=== PATIENT | female | born 1935 | race Caucasian/White ===

== ENCOUNTER 2018-08-06 15:06 | Inpatient (IN) | payer MEDICARE, OTHER ==
[~2018-08-06] VITALS: Ht 165.1 cm; Wt 72.0 kg
[2018-08-06] MEDS ORDERED: SODIUM CHLORIDE FLUSH 10ML SYR IVF ONE (15:30)
[2018-08-06] MEDS: PLEASE ENTER HEIGHT AND WEIGHT MC SCH ×4 (15:30→21:16)
[2018-08-06] MEDS: PLEASE ENTER ALLERGIES MC SCH ×2 (15:30→21:16)
[2018-08-06 15:50] LABS: BASOPHILS # (AUTO) 0.03 x10^3/uL (0-0.1); BASOPHILS % (AUTO) 1 % (0-1); EOSINOPHILS # (AUTO) 0.05 x10^3/uL (0-0.4); EOSINOPHILS % (AUTO) 1 % (1-7); LYMPHOCYTES # (AUTO) 2.03 x10^3/uL (1-3.4); LYMPHOCYTES % (AUTO) 37 % (22-44); MD NO; MEAN CORPUSCULAR HEMOGLOBIN 32.4 pg (27.0-34.8); MEAN CORPUSCULAR HGB CONC 33.6 g/dL (32.4-35.8); MEAN CORPUSCULAR VOLUME 96.4 fL (80-100); MEAN PLATELET VOLUME 7.6 fL (7.4-10.4); MONOCYTES # (AUTO) 0.47 x10^3/uL (0.2-0.8); MONOCYTES % (AUTO) 9 % (2-9); NEUTROPHILS # (AUTO) 2.91 x10^3/uL (1.8-6.8); NEUTROPHILS % (AUTO) 53 % (42-75); PLATELET COUNT 182 x10^3/uL (130-400); RED CELL DISTRIBUTION WIDTH 14.7 % (9.6-15.2)
[2018-08-06 15:57] LABS: ALBUMIN 3.5 g/dL (3.4-5.0); ANION GAP 7 mmol/L (5-15); CALCIUM 9.1 mg/dL (8.5-10.1); CHLORIDE 110 mmol/L (98-107); CREATININE 1.16 mg/dL (0.55-1.02); INTERNATIONAL NORMALIZED RATIO 1.02 (0.93-1.1); PROTHROMBIN TIME 10.6 Seconds (9.6-11.5)
[2018-08-06] MEDS ORDERED: MELO7.5T31 PO (15:58)
[2018-08-06] MEDS ORDERED: HYDR200T72 PO (15:58)
[2018-08-06] MEDS ORDERED: DONE10TA14 PO (15:58)
[2018-08-06] MEDS ORDERED: ESCI10TA PO (15:58)
[2018-08-06] MEDS ORDERED: MINO100C PO (15:58)
[2018-08-06 16:01] LABS: TROPONIN I 0.051 ng/mL (0.000-0.045)
[2018-08-06 16:16] LABS: MICROSCOPIC NOT IND
[2018-08-06 16:18] LABS: CULTURE INDICATED? NO
[2018-08-06] MEDS ORDERED: ONDANSETRON 2MG/ML, 2ML IVPush PRN (17:00)
[2018-08-06] MEDS ORDERED: GABAPENTIN 300 MG CAPSULE PO PRN (17:00)
[2018-08-06] MEDS ORDERED: NITROGLYCERIN 0.4 MG/SPRAY SL PRN (17:00)
[2018-08-06] MEDS ORDERED: ONDANSETRON ODT 4 MG PO PRN (17:00)
[2018-08-06] MEDS ORDERED: MORPHINE SULFATE 4 MG/ML, 1ML IVPush PRN (17:00)
[2018-08-06] MEDS ORDERED: NITROGLYCERIN 0.4 MG BOTTLE (25 TABS) SL PRN (17:00)
[2018-08-06] MEDS ORDERED: ACETAMINOPHEN 325 MG TABLET PO PRN (17:00)
[2018-08-06] MEDS ORDERED: LIDODERM 5% PATCH TD PRN (17:00)
[2018-08-06] MEDS ORDERED: hydrALAzine 20 MG/ML, 1ML IVPush PRN (17:00)
[2018-08-06] MEDS ORDERED: SODIUM CHLORIDE FLUSH 10ML SYR IVF PRN (17:30)
[2018-08-06] MEDS ORDERED: FOLI-17 PO (18:25)
[2018-08-06 19:28] LABS: THYROID STIMULATING HORMONE 1.37 mIU/L (0.358-3.740)
[2018-08-06 20:23] VITALS: BP 185/87
[2018-08-06] MEDS: SODIUM CHLORIDE 0.9% 1,000 ML IV SCH (21:05)
[2018-08-06] MEDS: ATORVASTATIN 40 MG TABLET PO SCH (21:14)
[2018-08-06] MEDS: HEPARIN 5,000 UNITS/ML, 1ML SQ SCH (21:14)
[2018-08-06] MEDS: DONEPEZIL 10 MG TABLET PO SCH (21:14)
[2018-08-06 22:04] LABS: TROPONIN I 0.038 ng/mL (0.000-0.045)
[2018-08-07 01:26] VITALS: BP 145/77
[2018-08-07] MEDS ORDERED: ASPIRIN 325 MG TABLET ONE (03:42)
[2018-08-07] MEDS: ASPIRIN 325 MG TABLET PO SCH (03:49)
[2018-08-07] MEDS: HEPARIN 5,000 UNITS/ML, 1ML SQ SCH ×3 (03:50→21:06)
[2018-08-07 03:56] LABS: ALANINE AMINOTRANSFERASE 29 U/L (12-78); ALBUMIN 3.2 g/dL (3.4-5.0); ANION GAP 9 mmol/L (5-15); CALCIUM 8.5 mg/dL (8.5-10.1); CHLORIDE 112 mmol/L (98-107); CHOLESTEROL, TOTAL 198 mg/dL (140-239); CREATININE 0.88 mg/dL (0.55-1.02); TRIGLYCERIDES 131 mg/dL (50-200); VLDL CHOLESTEROL 26 mg/dL (0-25)
[2018-08-07 04:00] LABS: ALKALINE PHOSPHATASE 65 U/L (45-117); BILIRUBIN,TOTAL 0.9 mg/dL (0.2-1.0); CHOL/HDL RATIO 2.7; HDL CHOL % 37 % (28-40); HDL CHOLESTEROL (DIRECT) 74 mg/dL (40-60); LDL CHOLESTEROL,CALCULATED 98 mg/dL (54-169); LDL/HDL RATIO 1.3 (0.5-3.0); TOTAL PROTEIN 6.5 g/dL (6.4-8.2); TROPONIN I 0.054 ng/mL (0.000-0.045)
[2018-08-07 04:05] LABS: BASOPHILS # (AUTO) 0.03 x10^3/uL (0-0.1); BASOPHILS % (AUTO) 1 % (0-1); EOSINOPHILS # (AUTO) 0.07 x10^3/uL (0-0.4); EOSINOPHILS % (AUTO) 1 % (1-7); LYMPHOCYTES # (AUTO) 2.64 x10^3/uL (1-3.4); LYMPHOCYTES % (AUTO) 48 % (22-44); MD NO; MEAN CORPUSCULAR HEMOGLOBIN 32.1 pg (27.0-34.8); MEAN CORPUSCULAR HGB CONC 34.2 g/dL (32.4-35.8); MEAN CORPUSCULAR VOLUME 93.8 fL (80-100); MEAN PLATELET VOLUME 7.5 fL (7.4-10.4); MONOCYTES # (AUTO) 0.49 x10^3/uL (0.2-0.8); MONOCYTES % (AUTO) 9 % (2-9); NEUTROPHILS # (AUTO) 2.33 x10^3/uL (1.8-6.8); NEUTROPHILS % (AUTO) 42 % (42-75); PLATELET COUNT 199 x10^3/uL (130-400); RED BLOOD COUNT 4.19 x10^6/uL (3.82-5.3); RED CELL DISTRIBUTION WIDTH 14.6 % (9.6-15.2)
[2018-08-07 08:00] VITALS: BP 139/79
[2018-08-07] MEDS: SENNA/DOCUSATE TABLET PO SCH (09:00)
[2018-08-07] MEDS: CITALOPRAM 20 MG TABLET PO SCH (11:10)
[2018-08-07] MEDS: HYDROXYCHLOROQUINE 200 MG TABLET PO SCH (11:10)
[2018-08-07] MEDS: MINOCYCLINE 100MG CAPSULE PO SCH (11:10)
[2018-08-07] MEDS: MELOXICAM 15 MG TABLET PO SCH (11:10)
[2018-08-07] MEDS: SODIUM CHLORIDE 0.9% 1,000 ML IV SCH (11:11)
[2018-08-07 14:08] VITALS: BP 150/85
[2018-08-07] MEDS ORDERED: GABA300C10 PO (15:00)
[2018-08-07] MEDS ORDERED: SUMATRIPTAN 6MG/0.5ML SQ ONE (15:30)
[2018-08-07] MEDS: GABAPENTIN 300 MG CAPSULE PO SCH ×2 (16:00→21:06)
[2018-08-07 19:00] VITALS: BP 138/78
[2018-08-07] MEDS: ATORVASTATIN 40 MG TABLET PO SCH (21:06)
[2018-08-07] MEDS: DONEPEZIL 10 MG TABLET PO SCH (21:06)
[2018-08-08 01:05] VITALS: BP 148/81
[2018-08-08] MEDS: HEPARIN 5,000 UNITS/ML, 1ML SQ SCH (05:21)
[2018-08-08 07:30] VITALS: BP 138/77
[2018-08-08] MEDS ORDERED: REGADENOSON 0.4 MG/5 ML SYRINGE ONE (08:19)
[2018-08-08] MEDS: ASPIRIN 325 MG TABLET PO SCH (09:00)
[2018-08-08] MEDS: SENNA/DOCUSATE TABLET PO SCH (09:00)
[2018-08-08] MEDS: GABAPENTIN 300 MG CAPSULE PO SCH ×2 (10:39→11:00)
[2018-08-08] MEDS: MELOXICAM 15 MG TABLET PO SCH (10:41)
[2018-08-08] MEDS: HYDROXYCHLOROQUINE 200 MG TABLET PO SCH (10:42)
[2018-08-08] MEDS: CITALOPRAM 20 MG TABLET PO SCH (10:42)
[2018-08-08] MEDS: MINOCYCLINE 100MG CAPSULE PO SCH (10:42)
[2018-08-08 13:00] VITALS: BP 158/85
[2018-08-08] MEDS ORDERED: ASPI-621 PO (14:31)
[2018-08-08] MEDS ORDERED: ATOR40TA78 PO (14:31)
== END 2018-08-08 16:56 | disposition home or self-care (01) | DRG 102 ==
LOC: ED 16:44 → EDIP 17:08 → 4WST 18:08
PROVIDERS: ADMIT Internal Medicine; ATTEND Internal Medicine
DX: G43.109 Migraine with aura, not intractable, without status migrainosus (principal); N17.0 Acute kidney failure with tubular necrosis; G45.9 Transient cerebral ischemic attack, unspecified; R26.2 Difficulty in walking, not elsewhere classified; M06.9 Rheumatoid arthritis, unspecified; G89.29 Other chronic pain; F32.9 Major depressive disorder, single episode, unspecified; E86.0 Dehydration; Z85.3 Personal history of malignant neoplasm of breast; Z90.11 Acquired absence of right breast and nipple; Z88.2 Allergy status to sulfonamides; Z72.89 Other problems related to lifestyle; Z82.0 Family history of epilepsy and other diseases of the nervous system; Z79.899 Other long term (current) drug therapy
CPT/HCPCS: 0399T; 36415; 70450; 70551; 71045; 78452; 80048; 80053; 80061; 81003; 82040; 82607; 83735; 84443; 84484; 85025; 85610; 85730; 93005; 93017; 93306; 93880; 99285; G0378; J1644; J2785; A9502; C9898; J3030; J7030